=== PATIENT | male | born 1985 | race Caucasian/White ===

== ENCOUNTER 2017-03-07 08:39 | Day surgery (SDC) | payer OTHER ==
[2017-03-02 16:19] LABS: BASOPHILS ABSOLUTE AUTO 0.02 K/mm3 (0.00-0.23); BASOPHILS PERCENT AUTO 0 % (0-2); EOSINOPHILS ABSOLUTE AUTO 0.08 K/mm3 (0.00-0.68); EOSINOPHILS PERCENT AUTO 1 % (0-6); Hematocrit 43.9 % (37.0-53.0); Hemoglobin 14.4 g/dL (13.5-17.5); IMMATURE GRAN ABSOLUTE AUTO 0.05 K/mm3 (0.00-0.10); IMMATURE GRAN PERCENT AUTO 1 % (0-1); LYMPHOCYTES PERCENT AUTO 23 % (21-46); MONOCYTES ABSOLUTE AUTO 0.42 K/mm3 (0.16-1.47); MONOCYTES PERCENT AUTO 6 % (4-13); Mean Corpuscular HGB 27.2 pg (26.0-34.0); Mean Corpuscular HGB Conc 32.8 g/dL (31.5-36.5); Mean Corpuscular Volume 83 fL (80-100); NEUTROPHILS ABSOLUTE AUTO 4.77 K/mm3 (1.96-9.15); NEUTROPHILS PERCENT AUTO 69 % (41-73); RDW Coefficient Variation 13.2 % (11.7-14.2); RDW Standard Deviation 39.8 fL (35.1-46.3); Red Blood Cell Count 5.29 M/mm3 (4.30-5.90); White Blood Cell Count 6.94 K/mm3 (4.00-11.30)
[2017-03-02 16:45] LABS: Anion Gap 11 mmol/L (6-16); Blood Urea Nitrogen 8 mg/dL (8-24); Bun/Creatinine Ratio 9.9 (12.0-20.0); CO2, Blood 27 mmol/L (21-32); Calcium, Blood 9.2 mg/dL (8.5-10.1); Chloride, Blood 102 mmol/L (98-108); Creatinine, Blood 0.81 mg/dL (0.60-1.20); Glomerular Filtration Rate >60 (60-); Glucose, Blood 85 mg/dL (70-99); Platelet Count 42 K/mm3 (150-400); Sodium, Blood 140 mmol/L (136-145)
[~2017-03-07 08:39] MED LIST: Prednisolo15 MG/5 ML PO; Zithromax100 MG/51 PO
[2017-03-07] MEDS ORDERED: TRAM50 PO (10:03)
[2017-03-07] MEDS ORDERED: Hair, Skin & N1 EACH PO (10:03)
== END 2017-03-07 10:20 | disposition home or self-care (01) ==
LOC: ATC 08:39
PROVIDERS: Podiatrist Foot & Ankle Surgery
DX: M19.072 Primary osteoarthritis, left ankle and foot (principal); Z01.818 Encounter for other preprocedural examination; M76.822 Posterior tibial tendinitis, left leg; M93.20 Osteochondritis dissecans of unspecified site
CPT/HCPCS: 36415; 36430; 80048; 85025; 86850; 86900; 86901; P9035

== ENCOUNTER 2017-03-07 11:03 | Day surgery (SDC) | payer OTHER ==
[~2017-03-07] VITALS: Ht 170.2 cm; Wt 110.7 kg
[~2017-03-07 11:03] MED LIST changes: +Hair, Skin & N1 EACH PO; +TRAM50 PO
== END 2017-03-07 16:55 | disposition home or self-care (01) ==
LOC: ORSCSDS 11:03
PROVIDERS: Podiatrist Foot & Ankle Surgery
PROC: 0SGJ04Z Fusion of Left Tarsal Joint with Internal Fixation Device, Open Approach (ICD-10-PCS; principal; 2017-03-07 12:30)
PROC: 0S9G3ZZ Drainage of Left Ankle Joint, Percutaneous Approach (ICD-10-PCS; principal; 2017-03-07 12:30)
DX: M76.822 Posterior tibial tendinitis, left leg (principal); M93.20 Osteochondritis dissecans of unspecified site; E66.01 Morbid (severe) obesity due to excess calories; D69.6 Thrombocytopenia, unspecified; Z68.41 Body mass index [BMI] 40.0-44.9, adult; I10 Essential (primary) hypertension; F84.0 Autistic disorder; Z79.899 Other long term (current) drug therapy
CPT/HCPCS: C1713; C1769; J0171; J0690; J1100; J1885; J2250; J2405; J2765; J3010; J7120

== ENCOUNTER 2018-12-11 09:18 | Day surgery (SDC) | payer OTHER | END 2018-12-11 13:02 | disposition home or self-care (01) | LOC: ATC 09:18 | DX: D69.6 Thrombocytopenia, unspecified (principal); M19.072 Primary osteoarthritis, left ankle and foot; M77.52 Other enthesopathy of left foot and ankle; Z79.899 Other long term (current) drug therapy; Z88.1 Allergy status to other antibiotic agents | CPT/HCPCS: J1100; J1885; J2250; J2405; J2704; J3010; J7050 ==

== ENCOUNTER 2018-12-11 13:26 | Day surgery (SDC) | payer OTHER ==
[~2018-12-11] VITALS: Ht 167.6 cm; Wt 103.1 kg
--- NOTE | 2018-12-11 14:50 | NUR ---
12/11/18 1450 Ranjana Fountain PATIENT ARRIVED TO [facility] PRE OP WITH IV THAT WAS PLACED OVER AT [facility] TODAY. IT WAS ACCESSED AND FLUSHED WITH 10ML NORMAL SALINE FLUSH, ATTACHED TO 1L LR AND IS RUNNING GOOD.
--- NOTE | 2018-12-11 17:05 | NUR ---
12/11/18 1705 Karon Villanueva ([place]es[place] APPROX 1658 OXYGEN REDUCED TO 5L/MIN, PT TOLERATED WELL, O2 STABLE. APPROX 1703, ATTEMPTED TO PLACE PT ON ROOM AIR, OXYGEN SATURATION DECLINED TO 84%. OXYGEN INCREASED TO 5L/MIN VIA FACETENT; O2 UP TO 97%.
--- NOTE | 2018-12-11 17:23 | NUR ---
12/11/18 1723 Karon Villanueva PT TOLERATING ROOM AIR, VSS. DENIES PAIN OR NAUSEA AT THIS TIME.
== END 2018-12-11 18:33 | disposition home or self-care (01) ==
LOC: ORSCSDS 13:26
PROVIDERS: Podiatrist Foot & Ankle Surgery
PROC: 0QBM0ZZ Excision of Left Tarsal, Open Approach (ICD-10-PCS; principal; 2018-12-11 14:45)
PROC: 0SBG4ZZ Excision of Left Ankle Joint, Percutaneous Endoscopic Approach (ICD-10-PCS; principal; 2018-12-11 14:45)
DX: M25.772 Osteophyte, left ankle (principal); M12.872 Other specific arthropathies, not elsewhere classified, left ankle and foot; E66.01 Morbid (severe) obesity due to excess calories; Z68.36 Body mass index [BMI] 36.0-36.9, adult; Z79.899 Other long term (current) drug therapy
CPT/HCPCS: 36415; 36430; 86850; 86900; 86901; J0171; J0690; J1100; J2250; J2405; J2704; J3010; J7120; P9035

== ENCOUNTER 2021-11-18 14:26 | Emergency (ER) | payer OTHER ==
[~2021-11-18] VITALS: Ht 170.2 cm; Wt 127.0 kg
[~2021-11-18 14:26] MED LIST changes: +ACET500 PO; +Celexa10 MG PO; +FURO20 PO; +NAPR220 PO
[2021-11-18 15:41] LABS: Albumin, Blood 3.3 g/dL (3.4-5.0); Albumin/Globulin Ratio 1.6 (0.8-1.8); Bilirubin, Total 2.5 mg/dL (0.1-1.0); Bun/Creatinine Ratio 6.5 (12.0-20.0); Calcium, Blood 8.1 mg/dL (8.5-10.1); Creatinine, Blood 0.77 mg/dL (0.60-1.20); Potassium, Blood 4.2 mmol/L (3.5-5.5); Total Protein, Blood 5.3 g/dL (6.4-8.2)
[2021-11-18 16:22] LABS: International Normalized Ratio 1.51; Prothrombin Time Results 15.4 Sec (9.7-11.5)
[2021-11-18 19:45] LABS: BASOPHILS ABSOLUTE AUTO 0.01 K/mm3 (0.00-0.23); BASOPHILS PERCENT AUTO 0 % (0-2); EOSINOPHILS ABSOLUTE AUTO 0.07 K/mm3 (0.00-0.68); EOSINOPHILS PERCENT AUTO 1 % (0-6); Hematocrit 38.2 % (37.0-53.0); Hemoglobin 12.7 g/dL (13.5-17.5); IMMATURE GRAN ABSOLUTE AUTO 0.01 K/mm3 (0.00-0.10); IMMATURE GRAN PERCENT AUTO 0 % (0-1); LYMPHOCYTES PERCENT AUTO 16 % (21-46); MONOCYTES ABSOLUTE AUTO 0.33 K/mm3 (0.16-1.47); MONOCYTES PERCENT AUTO 7 % (4-13); Mean Corpuscular HGB 26.7 pg (26.0-34.0); Mean Corpuscular HGB Conc 33.2 g/dL (31.5-36.5); Mean Corpuscular Volume 80 fL (80-100); NEUTROPHILS ABSOLUTE AUTO 3.76 K/mm3 (1.96-9.15); NEUTROPHILS PERCENT AUTO 76 % (41-73); RDW Coefficient Variation 15.5 % (11.7-14.2); RDW Standard Deviation 44.7 fL (35.1-46.3); Red Blood Cell Count 4.76 M/mm3 (4.30-5.90); White Blood Cell Count 4.98 K/mm3 (4.00-11.30)
[2021-11-18 19:47] LABS: Platelet Count 29 K/mm3 (150-400)
[2021-11-18 22:39] LABS: Source, Urine Clean Catch
[2021-11-18 22:44] LABS: Bilirubin, Urine Neg (Neg); Blood, Urine Neg (Neg); Glucose Qualitative, Urine Neg (Neg); Ketones, Urine Neg (Neg); Leukocyte Esterase, Urine Neg (Neg); Nitrite, Urine Neg (Neg); Protein, Urine Neg (Neg); Specific Gravity, Urine 1.015 (1.003-1.022); Urobilinogen, Urine NORM (Normal); pH, Urine 6.5 (5.0-8.0)
[2021-11-18 22:45] LABS: Appearance, Urine Clear (Clear); Color, Urine Yellow (P-Yellow)
[2021-11-18] MEDS ORDERED: FURO20 PO (23:07)
== END 2021-11-18 23:46 | disposition home or self-care (01) ==
LOC: ER 14:26
PROVIDERS: Physician Assistant
DX: R18.8 Other ascites (principal); K74.60 Unspecified cirrhosis of liver; K76.6 Portal hypertension; R06.02 Shortness of breath; K72.10 Chronic hepatic failure without coma; R00.0 Tachycardia, unspecified; Q90.9 Down syndrome, unspecified; Z88.1 Allergy status to other antibiotic agents; Z79.899 Other long term (current) drug therapy
CPT/HCPCS: 36415; 51798; 71045; 74177; 80053; 81003; 83880; 85025; 85610; 85730; 96374-59; 99284-25; J1940; Q9967

== ENCOUNTER 2021-12-03 01:26 | Day surgery (SDC) | payer OTHER ==
[2021-12-03 07:25] LABS: BASOPHILS ABSOLUTE AUTO 0.01 K/mm3 (0.00-0.23); BASOPHILS PERCENT AUTO 0 % (0-2); EOSINOPHILS PERCENT AUTO 2 % (0-6); Hematocrit 38.5 % (37.0-53.0); Hemoglobin 12.2 g/dL (13.5-17.5); IMMATURE GRAN ABSOLUTE AUTO 0.01 K/mm3 (0.00-0.10); IMMATURE GRAN PERCENT AUTO 0 % (0-1); LYMPHOCYTES ABSOLUTE AUTO 0.82 K/mm3 (0.84-5.20); LYMPHOCYTES PERCENT AUTO 17 % (21-46); MONOCYTES ABSOLUTE AUTO 0.39 K/mm3 (0.16-1.47); MONOCYTES PERCENT AUTO 8 % (4-13); Mean Corpuscular HGB 25.5 pg (26.0-34.0); Mean Corpuscular HGB Conc 31.7 g/dL (31.5-36.5); Mean Corpuscular Volume 81 fL (80-100); Mean Platelet Volume 11.5 fL (9.1-12.4); NEUTROPHILS ABSOLUTE AUTO 3.47 K/mm3 (1.96-9.15); NEUTROPHILS PERCENT AUTO 72 % (41-73); RDW Coefficient Variation 15.9 % (11.7-14.2); RDW Standard Deviation 46.5 fL (35.1-46.3); Red Blood Cell Count 4.78 M/mm3 (4.30-5.90)
[2021-12-03 07:36] LABS: Platelet Count 35 K/mm3 (150-400)
[2021-12-03 07:40] LABS: Albumin, Blood 3.3 g/dL (3.4-5.0); Albumin/Globulin Ratio 1.6 (0.8-1.8); Bilirubin, Total 2.6 mg/dL (0.1-1.0); Bun/Creatinine Ratio 8.8 (12.0-20.0); Calcium, Blood 8.7 mg/dL (8.5-10.1); Creatinine, Blood 0.91 mg/dL (0.60-1.20); Globulin, Blood 2.1 g/dL (2.2-4.0); Potassium, Blood 3.5 mmol/L (3.5-5.5); Total Protein, Blood 5.4 g/dL (6.4-8.2)
[2021-12-03 07:45] LABS: International Normalized Ratio 1.39; Prothrombin Time Results 14.3 Sec (9.7-11.5)
[2021-12-03] MEDS ORDERED: SPIR25 PO (09:54)
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
== END 2021-12-03 15:09 | disposition home or self-care (01) ==
LOC: ATC 01:26 → EDSTATUS 10:00 → ATC 10:00 → US 11:00 → ATC 15:09
PROVIDERS: Student in an Organized Health Care Education/Training Program
DX: K74.60 Unspecified cirrhosis of liver (principal); R18.8 Other ascites; Q87.89 Other specified congenital malformation syndromes, not elsewhere classified; D69.49 Other primary thrombocytopenia; E78.2 Mixed hyperlipidemia; E66.01 Morbid (severe) obesity due to excess calories; Z68.39 Body mass index [BMI] 39.0-39.9, adult
CPT/HCPCS: 36415; 49083; 80053; 85025; 85610; 85730; 86850; 86900; 86901; J7040; P9035; P9047

== ENCOUNTER 2022-03-02 16:07 | Emergency (ER) | payer OTHER ==
[~2022-03-02] VITALS: Ht 167.6 cm; Wt 106.6 kg
[~2022-03-02 16:07] MED LIST changes: +Celexa20 MG PO; +FURO40 PO; +METO5 PO; +SPIR25 PO
[2022-03-02 17:17] LABS: BASOPHILS ABSOLUTE AUTO 0.02 K/mm3 (0.00-0.23); BASOPHILS PERCENT AUTO 1 % (0-2); EOSINOPHILS PERCENT AUTO 3 % (0-6); Hematocrit 33.7 % (37.0-53.0); IMMATURE GRAN ABSOLUTE AUTO 0.01 K/mm3 (0.00-0.10); IMMATURE GRAN PERCENT AUTO 0 % (0-1); LYMPHOCYTES ABSOLUTE AUTO 0.73 K/mm3 (0.84-5.20); LYMPHOCYTES PERCENT AUTO 21 % (21-46); MONOCYTES ABSOLUTE AUTO 0.38 K/mm3 (0.16-1.47); MONOCYTES PERCENT AUTO 11 % (4-13); Mean Corpuscular HGB 27.2 pg (26.0-34.0); Mean Corpuscular HGB Conc 32.6 g/dL (31.5-36.5); Mean Corpuscular Volume 83 fL (80-100); Mean Platelet Volume 9.4 fL (9.1-12.4); NEUTROPHILS ABSOLUTE AUTO 2.23 K/mm3 (1.96-9.15); NEUTROPHILS PERCENT AUTO 64 % (41-73); RDW Standard Deviation 45.6 fL (35.1-46.3); Red Blood Cell Count 4.04 M/mm3 (4.30-5.90); White Blood Cell Count 3.47 K/mm3 (4.00-11.30)
[2022-03-02 17:26] LABS: Platelet Count 38 K/mm3 (150-400)
[2022-03-02 17:50] LABS: Albumin, Blood 3.2 g/dL (3.4-5.0); Albumin/Globulin Ratio 1.5 (0.8-1.8); Bilirubin, Total 1.8 mg/dL (0.1-1.0); Bun/Creatinine Ratio 17.5 (12.0-20.0); Calcium, Blood 8.7 mg/dL (8.5-10.1); Creatinine, Blood 1.6 mg/dL (0.60-1.20); Globulin, Blood 2.1 g/dL (2.2-4.0); Potassium, Blood 3.7 mmol/L (3.5-5.5); Total Protein, Blood 5.3 g/dL (6.4-8.2)
[2022-03-02 20:53] LABS: International Normalized Ratio 1.34; Prothrombin Time Results 13.8 Sec (9.7-11.5)
== END 2022-03-02 23:13 | disposition home or self-care (01) ==
LOC: ER 16:07
PROVIDERS: Emergency Medicine; Physician Assistant
DX: R18.8 Other ascites (principal); I95.81 Postprocedural hypotension; K74.60 Unspecified cirrhosis of liver; Z79.899 Other long term (current) drug therapy; Z88.8 Allergy status to other drugs, medicaments and biological substances
CPT/HCPCS: 36415; 71046; 80053; 83605; 85025; 85610; J0696; J7030

== ENCOUNTER 2022-06-17 13:33 | Emergency (ER) | payer OTHER ==
[~2022-06-17] VITALS: Ht 167.6 cm; Wt 113.4 kg
[2022-06-17 19:26] LABS: Mean Platelet Volume 9.5 fL (9.1-12.4)
[2022-06-17 19:28] LABS: Platelet Count 27 K/mm3 (150-400)
[2022-06-17 20:00] VITALS: BP 134/51
== END 2022-06-17 20:18 | disposition home or self-care (01) ==
LOC: ER 13:33
PROVIDERS: Emergency Medicine
DX: R18.8 Other ascites (principal); D69.6 Thrombocytopenia, unspecified; Z79.899 Other long term (current) drug therapy
CPT/HCPCS: 36430; 85049; 86900; 86901; 99284-25; J7030; P9035

== ENCOUNTER 2022-08-26 12:29 | Observation (INO) | payer OTHER ==
[~2022-08-26] VITALS: Ht 165.1 cm; Wt 124.1 kg
[2022-08-26] MEDS ORDERED: CELEXA10 MG PO (17:01)
[2022-08-26] MEDS ORDERED: MIDODRINE HCL10 M6 PO (17:02)
[2022-08-26] MEDS ORDERED: SPIRONOLACTONE50 MG PO (17:02)
[2022-08-26 18:20] LABS: BASOPHILS ABSOLUTE AUTO 0.01 K/mm3 (0.00-0.23); BASOPHILS PERCENT AUTO 0 % (0-2); EOSINOPHILS ABSOLUTE AUTO 0.03 K/mm3 (0.00-0.68); EOSINOPHILS PERCENT AUTO 1 % (0-6); Hematocrit 32.7 % (37.0-53.0); Hemoglobin 10.3 g/dL (13.5-17.5); IMMATURE GRAN ABSOLUTE AUTO 0.01 K/mm3 (0.00-0.10); IMMATURE GRAN PERCENT AUTO 0 % (0-1); LYMPHOCYTES PERCENT AUTO 16 % (21-46); MONOCYTES ABSOLUTE AUTO 0.15 K/mm3 (0.16-1.47); MONOCYTES PERCENT AUTO 6 % (4-13); Mean Corpuscular HGB Conc 31.5 g/dL (31.5-36.5); Mean Corpuscular Volume 83 fL (80-100); Mean Platelet Volume 10.6 fL (9.1-12.4); NEUTROPHILS ABSOLUTE AUTO 1.97 K/mm3 (1.96-9.15); NEUTROPHILS PERCENT AUTO 77 % (41-73); RDW Coefficient Variation 15.9 % (11.7-14.2); RDW Standard Deviation 47.8 fL (35.1-46.3); Red Blood Cell Count 3.96 M/mm3 (4.30-5.90); White Blood Cell Count 2.57 K/mm3 (4.00-11.30)
[2022-08-26 18:26] LABS: Albumin, Blood 3.2 g/dL (3.4-5.0); Albumin/Globulin Ratio 1.3 (0.8-1.8); Bun/Creatinine Ratio 9.6 (12.0-20.0); Calcium, Blood 8.4 mg/dL (8.5-10.1); Creatinine, Blood 1.14 mg/dL (0.60-1.20); Globulin, Blood 2.4 g/dL (2.2-4.0); Total Protein, Blood 5.6 g/dL (6.4-8.2)
[2022-08-26 18:27] LABS: Platelet Count 28 K/mm3 (150-400)
[2022-08-26 18:54] LABS: International Normalized Ratio 1.3; Prothrombin Time Results 13.4 Sec (9.7-11.5)
--- NOTE | 2022-08-26 20:07 | NUR ---
pt chart reviewed for admission
[2022-08-26 20:45] VITALS: BP 126/65
[2022-08-27 02:18] VITALS: BP 107/81
[2022-08-27 05:19] LABS: Hematocrit 29.2 % (37.0-53.0); Hemoglobin 9.3 g/dL (13.5-17.5); Mean Corpuscular HGB 26.3 pg (26.0-34.0); Mean Corpuscular HGB Conc 31.8 g/dL (31.5-36.5); Mean Corpuscular Volume 83 fL (80-100); Mean Platelet Volume 10.5 fL (9.1-12.4); RDW Coefficient Variation 15.9 % (11.7-14.2); RDW Standard Deviation 48.2 fL (35.1-46.3); Red Blood Cell Count 3.54 M/mm3 (4.30-5.90); White Blood Cell Count 1.69 K/mm3 (4.00-11.30)
[2022-08-27 05:39] LABS: Platelet Count 27 K/mm3 (150-400)
--- NOTE | 2022-08-27 06:39 | NUR ---
SHIFT SUMMARY PT DEVELOPMENATLY DELAYED BUT A&OX4 AND PLEASANT. PT ARRIVED FROM ED WITH MOM AT BEDSIDE. PT ORRIENTED TO ROOM. EDUCATED ON POSSIBLE SOURCES OF IGNITION AND NO SMOKING POLICY. INDEPENDENT IN ROOM. PT DENIED PAIN. VSS. CRITICAL PLATELET COUNT OF 28 IN ED. PT ABLE TO SLEEP T/O MOST OF THE NIGHT. BED IN LOWEST POSITION AND CALL LIGHT IN REACH.
[2022-08-27 08:06] VITALS: BP 120/70
--- NOTE | 2022-08-27 08:56 | NUR ---
0845 DR BAZZI NOTIFIED FOR PLATELET ORDER; PRE-PARACENTSIS PROCEDURE. MAY IN US UPDATED ON ORDER. US TO BE NOTIFIED WHEN BLOOD BANK HAS PLATELETS READY.
[2022-08-27 09:35] VITALS: BP 102/60
[2022-08-27 14:55] VITALS: BP 107/54
--- NOTE | 2022-08-27 15:48 | NUR ---
PT AWAKE DURING SHIFT REPORT THIS AM. PT ADMITTED TO RECEIVE THERAPUTIC PARACENTESIS. IMAGING TO FOR ABD US PRIOR TO PARA. DR BAZZI THEN NOTIFIED FOR PLATELET ORDER. PLATELETS ORDERED AND GIVEN THEN IMAGING NOTIFIED TO OBTAIN PT FOR PARACENTESIS. 10L REMOVED DURING PROCEDURE. PT RETURNED TO AND DR BAZZI ORDERED ALBUMIN, PER EMAR. ALBUMIN NEARING COMPLETION AND THEN PT TO D/C BACK TO HOME PER HIS REQUEST. PT UP INDEPENDENTLY IN AND TO [facility]. PT NOW SITTING IN CHAIR AT BS. D/C ORDERS BEING REVIEWED. PT'S MOM IN AT BS.
== END 2022-08-27 16:24 | disposition home or self-care (01) ==
LOC: ER 12:29 → MEDS 12:30
PROVIDERS: Emergency Medicine; Nurse Practitioner Acute Care; ADMIT Internal Medicine
DX: K74.60 Unspecified cirrhosis of liver (principal); E87.70 Fluid overload, unspecified; R18.8 Other ascites; D69.6 Thrombocytopenia, unspecified; I95.9 Hypotension, unspecified; Q90.9 Down syndrome, unspecified; K72.10 Chronic hepatic failure without coma
CPT/HCPCS: 36415; 36430; 49083; 76705; 80053; 82140; 85025; 85027; 85610; 86850; 86900; 86901; 96365; 96366; 99285-25; A9270; G0378; J7050; P9035; P9045

== ENCOUNTER 2022-11-22 14:58 | Observation (INO) | payer OTHER ==
[~2022-11-22] VITALS: Ht 167.6 cm; Wt 125.0 kg
[~2022-11-22 14:58] MED LIST changes: +CELEXA10 MG PO; +MIDODRINE HCL10 M6 PO; +SPIRONOLACTONE50 MG PO
[2022-11-22] MEDS ORDERED: DOPTELET20 MG PO (20:46)
[2022-11-22 21:19] VITALS: BP 120/67
[2022-11-23 02:40] VITALS: BP 125/72
--- NOTE | 2022-11-23 06:59 | NUR ---
SHIFT SUMMARY PATIENT ARRIVED TO UNIT FROM THE ED AT 21:10. ORIENTED PATIENT TO UNIT, ROOM AND CALL LIGHT USE. ACCOMPANIED BY FAMILY MEMBER. IS A/Ox4, ABLE TO MAKE NEEDS KNOWN. DENIES PAIN NOR DISCOMFORT. VSS, SPO2 >90 ON RA. AWAITING TRANSFUSION OF PLATELETS, 6 UNITS, IN AM BEFORE PARACENTESIS. PER LAB, WILL BE ORDERED BY 8AM AND SHOULD ARRIVE BY AFTERNOON. WILL INFORM ONCOMING SHIFT. NO ACUTE CHANGES NOTED OVERNIGHT. BED LOCKED AND IN LOWEST POSITION, CALL LIGHT WITHIN REACH.
[2022-11-23 07:20] VITALS: BP 119/83
[2022-11-23 09:50] VITALS: BP 116/52
[2022-11-23 10:08] VITALS: BP 120/66
[2022-11-23 10:31] VITALS: BP 107/56
[2022-11-23 11:37] LABS: Hematocrit 28.9 % (37.0-53.0); Hemoglobin 9.4 g/dL (13.5-17.5); Mean Corpuscular HGB 26.3 pg (26.0-34.0); Mean Corpuscular HGB Conc 32.5 g/dL (31.5-36.5); Mean Corpuscular Volume 81 fL (80-100); RDW Coefficient Variation 16.1 % (11.7-14.2); RDW Standard Deviation 47.5 fL (35.1-46.3); Red Blood Cell Count 3.57 M/mm3 (4.30-5.90); White Blood Cell Count 2.18 K/mm3 (4.00-11.30)
[2022-11-23 11:50] LABS: Platelet Count 3 K/mm3 (150-400)
[2022-11-23 12:04] LABS: BASOPHILS PERCENT MAN 0 % (0-2); EOSINOPHILS PERCENT MAN 0 % (0-6); LYMPHOCYTES ABSOLUTE MAN 0.28 K/mm3 (0.84-5.20); LYMPHOCYTES PERCENT MAN 13 % (21-46); MONOCYTES ABSOLUTE MAN 0.02 K/mm3 (0.16-1.47); MONOCYTES PERCENT MAN 1 % (4-13); NEUTROPHILS ABSOLUTE MAN 1.87 K/mm3 (1.96-9.15); SEG NEUTROPHILS PERCENT MAN 86 % (41-73); TOTAL CELLS COUNTED 100
[2022-11-23 12:06] LABS: Albumin, Blood 2.9 g/dL (3.4-5.0); Albumin/Globulin Ratio 1.4 (0.8-1.8); Bilirubin, Total 2.8 mg/dL (0.1-1.0); Bun/Creatinine Ratio 6.5 (12.0-20.0); Calcium, Blood 8.3 mg/dL (8.5-10.1); Creatinine, Blood 1.23 mg/dL (0.60-1.20); Globulin, Blood 2.1 g/dL (2.2-4.0); Potassium, Blood 4.3 mmol/L (3.5-5.5)
[2022-11-23] MEDS ORDERED: CIPR500 PO (14:37)
--- NOTE | 2022-11-23 15:53 | NUR ---
DISCHARGE DC AT 1448. AFTER 1 UNITS OF PLATELETS, VALUE ONLY INCREASED TO 3. SO PARACENTESIS WAS HELD. PLAN FOR PATIENT TO FOLLOW UP WITH PCP AND DR. SORTO. PT & MOTHER EDUCATED ON FOLLOW UP INSTRUCTIONS, INCLUDING APPOINTMENTS. PT & MOTHER DENIES FURTHER NEED FOR EDUCATION AT THIS TIME. WHEELED OUT BY THIS RN & DRIVEN HOME BY MOTHER.
== END 2022-11-23 14:48 | disposition home or self-care (01) ==
LOC: ER 14:58 → MEDS 14:59
PROVIDERS: Hospitalist; ADMIT Hospitalist
DX: R18.8 Other ascites (principal); K74.60 Unspecified cirrhosis of liver; K76.0 Fatty (change of) liver, not elsewhere classified; D69.6 Thrombocytopenia, unspecified; Q87.83 Bardet-Biedl syndrome; I07.1 Rheumatic tricuspid insufficiency; Q90.9 Down syndrome, unspecified
CPT/HCPCS: 36415; 36430; 76705; 80053; 85025; 86900; 86901; 99284; A9270; G0378; J7040; P9035